=== PATIENT | male | born 1950 | race Caucasian/White ===

== ENCOUNTER 2018-12-04 10:59 | Inpatient (IN) | payer OTHER ==
[~2018-12-04] VITALS: Ht 170.2 cm; Wt 93.0 kg
[2019-01-05] MEDS ORDERED: COZAAR50 MG PO (10:33)
[2019-01-05] MEDS ORDERED: LIPITOR40 MG PO (10:34)
== END 2019-01-16 17:51 | disposition home or self-care (01) | DRG 330 ==
LOC: ADM 01-05 08:30 → EDSTATUS 01-05 08:30 → ADM 01-05 09:00 → SURG 01-13 08:30 → O/R 01-13 10:09 → SURG 01-13 10:09
PROVIDERS: ADMIT Colon & Rectal Surgery
PROC: 07TB4ZZ Resection of Mesenteric Lymphatic, Percutaneous Endoscopic Approach (ICD-10-PCS; 2019-01-13)
PROC: 0D1B4Z4 Bypass Ileum to Cutaneous, Percutaneous Endoscopic Approach (ICD-10-PCS; 2019-01-13)
PROC: 0DTN4ZZ Resection of Sigmoid Colon, Percutaneous Endoscopic Approach (ICD-10-PCS; principal; 2019-01-13 10:00)
DX: C20 Malignant neoplasm of rectum (principal); K92.1 Melena; D62 Acute posthemorrhagic anemia; K63.89 Other specified diseases of intestine; R59.0 Localized enlarged lymph nodes; I11.9 Hypertensive heart disease without heart failure

== ENCOUNTER 2019-01-12 11:25 | Day surgery (SDC) | payer OTHER ==
[~2019-01-12 11:25] MED LIST: COZAAR50 MG PO; LIPITOR40 MG PO
== END 2019-01-12 16:30 | disposition home or self-care (01) ==
LOC: AMB-ENDOS 11:25 → SURG 01-13 08:30 → EDSTATUS 01-13 08:30
DX: C20 Malignant neoplasm of rectum (principal); K64.1 Second degree hemorrhoids

== ENCOUNTER 2019-03-09 09:34 | Inpatient (IN) | payer OTHER ==
[~2019-03-09] VITALS: Ht 170.2 cm; Wt 82.1 kg
[2019-04-18] MEDS ORDERED: PRILOSEC OTC20 MG PO (10:33)
[2019-04-18] MEDS ORDERED: ACETAMINOPHEN500 M2 PO (10:33)
[2019-04-18] MEDS ORDERED: INTESTINEX680 M1 PO (10:33)
[2019-04-18] MEDS ORDERED: NEURONTIN300 MG PO (10:33)
== END 2019-04-18 13:24 | disposition home or self-care (01) | DRG 330 ==
LOC: SURG 04-15 05:17 → O/R 04-15 05:17 → SURG 04-15 07:00
PROVIDERS: ADMIT Colon & Rectal Surgery
PROC: 0DQB4ZZ Repair Ileum, Percutaneous Endoscopic Approach (ICD-10-PCS; principal; 2019-04-15 07:00)
DX: Z43.2 Encounter for attention to ileostomy (principal); C20 Malignant neoplasm of rectum; I11.9 Hypertensive heart disease without heart failure; I12.9 Hypertensive chronic kidney disease with stage 1 through stage 4 chronic kidney disease, or unspecified chronic kidney disease; N18.2 Chronic kidney disease, stage 2 (mild)

== ENCOUNTER → 2019-03-30 | Outpatient (CLI) | payer OTHER | END | disposition home or self-care (01) | LOC: RX STUDY 07:35 | DX: C20 Malignant neoplasm of rectum (principal) ==

== ENCOUNTER 2020-01-01 08:31 | Day surgery (SDC) | payer OTHER ==
[~2020-01-01 08:31] MED LIST changes: +ACETAMINOPHEN500 M2 PO; +INTESTINEX680 M1 PO; +NEURONTIN300 MG PO; +PRILOSEC OTC20 MG PO
== END 2020-01-01 12:25 | disposition home or self-care (01) ==
LOC: AMB-ENDOS 08:31
PROVIDERS: ATTEND Colon & Rectal Surgery
DX: K62.89 Other specified diseases of anus and rectum (principal); Z20.828 Contact with and (suspected) exposure to other viral communicable diseases

== ENCOUNTER 2021-02-17 06:00 | Day surgery (SDC) | payer OTHER | END 2021-02-17 13:45 | disposition home or self-care (01) | LOC: AMB-ENDOS 06:00 | PROVIDERS: ATTEND Colon & Rectal Surgery | DX: K62.89 Other specified diseases of anus and rectum (principal); Z20.822 Contact with and (suspected) exposure to COVID-19 ==